=== PATIENT | female | born 1975 ===

== ENCOUNTER 2023-03-15 16:50 | Inpatient (IN) | payer MEDICARE, MEDICAID ==
[~2023-03-15] VITALS: Ht 167.6 cm; Wt 65.8 kg
[2023-03-15] MEDS ORDERED: mag hydrox/Alum hydrox/simeth 30ml oral suspension PO PRN (16:55)
[2023-03-15] MEDS ORDERED: acetaminophen 325mg tablet PO PRN ×2 (16:55)
[2023-03-15] MEDS ORDERED: magnesium hydroxide 30ml (MOM) UD suspension PO PRN (16:55)
[2023-03-15] MEDS ORDERED: loperamide 2mg capsule PO PRN (16:55)
[2023-03-15 16:59] VITALS: BP 147/90; PULSE 122; RESP 18; TEMP 97; O2SAT 99
[2023-03-15] MEDS ORDERED: DULO30CA52 PO (17:06)
[2023-03-15] MEDS ORDERED: DULO60CA65 PO (17:06)
[2023-03-15] MEDS ORDERED: HYDR-3686 PO (17:06)
[2023-03-15] MEDS ORDERED: CLON-568 PO (17:06)
[2023-03-15] MEDS ORDERED: CLON1TAB96 PO (17:06)
[2023-03-15] MEDS ORDERED: LAMO150T6 PO (17:06)
[2023-03-15 17:34] VITALS: RESP 18; O2SAT 99
[2023-03-15] MEDS ORDERED: LORazepam 1 MG tablet PO ONE (18:10)
[2023-03-15 19:00] VITALS: RESP 18; O2SAT 98
[2023-03-15 20:00] VITALS: BP 145/91; PULSE 112; RESP 18; TEMP 98.5; O2SAT 98
[2023-03-15] MEDS: LORazepam 1 MG tablet PO SCH (20:16)
[2023-03-15] MEDS: hydrOXYzine 25 MG tablet PO SCH (20:17)
[2023-03-15] MEDS: lamoTRIgine 100mg tablet PO SCH (20:18)
[2023-03-15] MEDS ORDERED: clonazePAM 1mg tablet PO SCH (21:00)
[2023-03-16] MEDS: hydrOXYzine 25 MG tablet PO PRN ×2 (05:38→15:35)
[2023-03-16 07:30] VITALS: BP 130/86; PULSE 95; RESP 16; TEMP 98.1; O2SAT 98
[2023-03-16] MEDS ORDERED: clonazePAM 0.5mg tablet PO SCH (08:00)
[2023-03-16] MEDS ORDERED: non-formulary drug (Duloxetine HCl 1 CAP) PO SCH (08:00)
[2023-03-16] MEDS: lamoTRIgine 100mg tablet PO SCH ×2 (08:15→20:34)
[2023-03-16] MEDS: duloxetine 30mg CAPSULE.DR PO SCH (08:15)
[2023-03-16] MEDS: LORazepam 0.5 MG tablet PO SCH (08:17)
[2023-03-16] MEDS: hydrOXYzine 25 MG tablet PO SCH ×3 (08:18→20:34)
[2023-03-16 09:28] LABS: CHOL/HDL RATIO 3.6 (0.00-4.99); CHOLESTEROL 273 MG/DL (0-200); HDL CHOLESTEROL 75 MG/DL (35-60); LDL CHOLESTEROL 171 MG/DL (50-100); TRIGLYCERIDES 97 MG/DL (20-135)
[2023-03-16 10:05] LABS: HEMOGLOBIN A1C 5.2 % (4.5-6.2)
[2023-03-16] MEDS: ibuprofen 200mg tablet PO PRN (11:21)
[2023-03-16] MEDS: ondansetron 4mg rapidly disintigrating tab PO PRN (11:22)
[2023-03-16 19:00] VITALS: RESP 20; O2SAT 97
[2023-03-16 20:00] VITALS: BP 134/91; PULSE 90; RESP 20; TEMP 97.8; O2SAT 97
[2023-03-16] MEDS: LORazepam 1 MG tablet PO SCH (20:34)
[2023-03-17 07:00] VITALS: RESP 16; O2SAT 97
[2023-03-17 08:00] VITALS: BP 124/77; PULSE 77; RESP 12; TEMP 97; O2SAT 97
[2023-03-17] MEDS: duloxetine 30mg CAPSULE.DR PO SCH (08:43)
[2023-03-17] MEDS: LORazepam 0.5 MG tablet PO SCH (08:43)
[2023-03-17] MEDS: lamoTRIgine 100mg tablet PO SCH ×2 (08:43→20:45)
[2023-03-17] MEDS: hydrOXYzine 25 MG tablet PO SCH ×3 (08:43→20:44)
[2023-03-17] MEDS: ibuprofen 200mg tablet PO PRN ×2 (08:43→18:04)
[2023-03-17] MEDS: ondansetron 4mg rapidly disintigrating tab PO PRN (13:19)
[2023-03-17] MEDS ORDERED: NICOTINE POLACRILEX 2 MG LOZENGE BC PRN (17:40)
[2023-03-17 19:30] VITALS: BP 89/67; PULSE 104; RESP 16; TEMP 96.8; O2SAT 97
[2023-03-17] MEDS: LORazepam 1 MG tablet PO SCH (20:44)
[2023-03-17] MEDS: hydrOXYzine 25 MG tablet PO PRN (23:07)
[2023-03-18 07:00] VITALS: RESP 16; O2SAT 97
[2023-03-18 08:00] VITALS: BP 118/74; PULSE 88; RESP 12; TEMP 97.4; O2SAT 99
[2023-03-18] MEDS: lamoTRIgine 25mg tablet PO SCH (08:57)
[2023-03-18] MEDS: lamoTRIgine 100mg tablet PO SCH ×2 (08:57→20:34)
[2023-03-18] MEDS: duloxetine 30mg CAPSULE.DR PO SCH (08:57)
[2023-03-18] MEDS: nicotine 14mg patch - 24hr TD SCH (08:58)
[2023-03-18] MEDS: LORazepam 0.5 MG tablet PO SCH (08:58)
[2023-03-18] MEDS: hydrOXYzine 25 MG tablet PO SCH ×3 (08:58→20:34)
[2023-03-18 19:30] VITALS: BP 108/77; PULSE 100; RESP 16; TEMP 98; O2SAT 99
[2023-03-18] MEDS: LORazepam 1 MG tablet PO SCH (20:34)
[2023-03-19 07:00] VITALS: RESP 16; O2SAT 96
[2023-03-19 08:00] VITALS: BP 117/69; PULSE 72; RESP 16; TEMP 97.8; O2SAT 96
[2023-03-19] MEDS ORDERED: naltrexone 50mg tablet PO SCH (08:00)
[2023-03-19] MEDS: lamoTRIgine 100mg tablet PO SCH (08:24)
[2023-03-19] MEDS: LORazepam 0.5 MG tablet PO SCH (08:24)
[2023-03-19] MEDS: hydrOXYzine 25 MG tablet PO SCH (08:24)
[2023-03-19] MEDS: duloxetine 30mg CAPSULE.DR PO SCH (08:24)
[2023-03-19] MEDS: lamoTRIgine 25mg tablet PO SCH (08:25)
[2023-03-19] MEDS: nicotine 14mg patch - 24hr TD SCH (08:25)
[2023-03-19] MEDS ORDERED: LAMO100T65 PO (11:47)
[2023-03-19] MEDS ORDERED: NALT50TA PO (11:47)
== END 2023-03-19 13:10 | disposition home or self-care (01) | DRG 885 ==
LOC: ADULT MH 16:50
PROVIDERS: ADMIT Psychiatry & Neurology Psychiatry; ATTEND Psychiatry & Neurology Psychiatry
PROC: GZ51ZZZ Individual Psychotherapy, Behavioral (ICD-10-PCS; principal; 2023-03-16)
PROC: GZHZZZZ Group Psychotherapy (ICD-10-PCS; 2023-03-16)
DX: F33.2 Major depressive disorder, recurrent severe without psychotic features (principal); R45.851 Suicidal ideations; S61.512A Laceration without foreign body of left wrist, initial encounter; X58.XXXA Exposure to other specified factors, initial encounter; Y93.89 Activity, other specified; Y92.89 Other specified places as the place of occurrence of the external cause; Y99.8 Other external cause status; F10.10 Alcohol abuse, uncomplicated; F12.20 Cannabis dependence, uncomplicated; F17.210 Nicotine dependence, cigarettes, uncomplicated; G47.00 Insomnia, unspecified; Z63.4 Disappearance and death of family member; Z81.8 Family history of other mental and behavioral disorders; Z91.52 Personal history of nonsuicidal self-harm; Z91.81 History of falling
CPT/HCPCS: 36415; 80061; 83036; 87081; Q0177